=== PATIENT | male | born 1985 | race Caucasian/White ===

== ENCOUNTER 2017-01-15 20:28 | Emergency (ER) | payer BC ==
[~2017-01-15] VITALS: Ht 182.9 cm; Wt 83.9 kg
--- NOTE | 2017-01-15 20:55 | NUR ---
TO BED 1 AMBULATORY C/O L HAND SWELLING, REDNESS, DRAINAGE WITH NECROSIS NOTED S/P INJECTING HEROIN 3 DAYS AGO. PT AAOX4 NO ACUTE DISTRESS NOTED, RESP EVEN AND UNLABORED. PLACE PT ON CARDAIC MONITORING, CONTINUOUS POX. ER MD AT BEDSIDE TO EVAL PT WITH ORDERS RECEIVED. WILL CARRY OUT ORDERS.
--- NOTE | 2017-01-15 21:15 | NUR ---
CALLED DR SACHIN MEHTA FOR A CONSULT, TRANSFERRED CALL TO DR HU
--- NOTE | 2017-01-15 21:22 | NUR ---
PAGED DR LANDRUM, ARCHITECTURAL PRACTICE MANAGER FOR DR RICKS FOR A CONSULT
--- NOTE | 2017-01-15 21:29 | NUR ---
CALLED [facility] TO INITIATE HIGHER LEVEL OF CARE TRANSFER. INFORMED THERE ARE NO AVAILABLE BEDS.
[2017-01-15] MEDS ORDERED: VANCOMYCIN 1 GM in IV D5W 250 ML IV ONE (21:30)
[2017-01-15] MEDS ORDERED: METRONIDAZOLE 500MG/ NS 100ML 100 ML IV ONE ×2 (21:30→21:34)
[2017-01-15] MEDS ORDERED: PIPERACILLIN /TAZOBACTAM 3.375 G in IV D5W 50 ML IV ONE (21:30)
[2017-01-15] MEDS ORDERED: IV NS 0.9% 1,000 ML BAG IV ONE ×2 (21:30→22:00)
[2017-01-15] MEDS ORDERED: VANCOMYCIN 1 GM VIAL ONE (21:35)
[2017-01-15] MEDS ORDERED: PIPERACILLIN /TAZOBACTAM 3.375 G VIAL IV ONE (21:35)
[2017-01-15 21:37] LABS: BASOPHILS # (AUTO) 0.3 /CMM (0.0-0.2); BASOPHILS % (AUTO) 1.8 % (0.0-2.0); EOSINOPHILS % (AUTO) 0.1 % (0.0-6.0); HEMATOCRIT 45 % (39-51); HEMOGLOBIN 14.5 g/dL (13.5-17.5); LYMPHOCYTES # (AUTO) 2.1 /CMM (0.8-4.8); LYMPHOCYTES % (AUTO) 14.8 % (20.0-44.0); MEAN CORPUSCULAR HEMOGLOBIN 26 PG (26.0-33.0); MEAN CORPUSCULAR HGB CONC 32 g/dl (31.0-36.0); MEAN CORPUSCULAR VOLUME 82 fL (80-96); MONOCYTES # (AUTO) 0.6 /CMM (0.1-1.30); MONOCYTES % (AUTO) 4.2 % (2.0-12.0); NEUTROPHILS # (AUTO) 11.2 /CMM (1.8-8.9); NEUTROPHILS % (AUTO) 79.1 % (43.0-81.0); PLATELET COUNT (AUTO) 382 /CMM (150-450); RDW COEFFICIENT OF VARIATION 14.5 (11.5-15.0); RED BLOOD CELL COUNT(AUTO) 5.51 MIL/uL (4.5-6.0); WHITE BLOOD COUNT (AUTO) 14.2 K/uL (4.3-11.0)
--- NOTE | 2017-01-15 21:40 | NUR ---
CALLED [facility] TRANSFER LINE AND SPOKE TO PRISCA. EXPECTING CALL BACK.
--- NOTE | 2017-01-15 21:46 | NUR ---
CALLED [facility] TRANSFER LINE, SPOKE WITH MCKAY. WILL FAX FACESHEET TO [phone].
[2017-01-15 21:48] LABS: CALCIUM, SERUM 8.7 mg/dL (8.5-10.1); CARBON DIOXIDE 32 mmol/L (21-32); CHLORIDE 95 mmol/L (98-107); CREATININE 0.9 mg/dL (0.6-1.3); GLUCOSE 131 mg/dL (74-106); POTASSIUM 3.5 mmol/L (3.5-5.1); SODIUM SERUM 135 mmol/L (136-145); UREA NITROGEN, BLOOD 10 mg/dL (7-18)
[2017-01-15 21:52] LABS: INR 1.06 (0.87-1.13)
--- NOTE | 2017-01-15 21:53 | NUR ---
SPOKE WITH JAMES WITH [facility] TRANSFER LINE. WILL FAX FACE SHEET TO [phone]
--- NOTE | 2017-01-15 21:59 | NUR ---
SPOKE WITH JENNY NURSING LEGAL SERVICE SPECIALIST AT [facility]. THEY WILL NOT BE ABLE TO ACCOMODATE THIS PATIENT.
[2017-01-15] MEDS ORDERED: IV NS 0.9% 500 ML BAG IV ONE (22:00)
--- NOTE | 2017-01-15 22:02 | NUR ---
DR LANDRUM CALLED BACK, TRANSFERRED CALL TO DR HU
--- NOTE | 2017-01-15 22:06 | NUR ---
CALLED [facility] TRANSFER LINE, SPOKE WITH KYLAH. WILL FAX FACE SHEET TO [phone]. Addendum: 01/15/17 at 2208 by JEFF KYLAH FROM [facility] CALLED BACK. THEY WILL NOT HAVE A HAND SURGEON AVAILABLE FOR AN URGENT CONSULT.
--- NOTE | 2017-01-15 22:07 | NUR ---
[facility] CALLED FOR HIGHER LEVEL OF CARE. NO BEDS AVAILABLE.
--- NOTE | 2017-01-15 22:14 | NUR ---
CALLED [facility] FOR HLOC TRANSFER, SPOKE TO KEVIN NURSING TANNER ROTARY DRUM CONTINUOUS PROCESS, NO BEDS AVAILABLE AT THIS TIME.
--- NOTE | 2017-01-15 22:15 | NUR ---
CALLED CLAUDIA NURSING BB SHOT PACKER AT [facility]. SHE WILL CHECK FOR WITH PLASTICS AND WILL CALL US BACK.
[2017-01-15 22:18] LABS: C-REACTIVE PROTEIN 22.7 mg/dL (0.0-0.9)
--- NOTE | 2017-01-15 22:24 | NUR ---
PAGED DR AARON, PLASTICS AND HAND SURGEON
--- NOTE | 2017-01-15 22:26 | NUR ---
[facility] CALLED FOR HIGHER LEVEL OF CARE. SPOKE WITH PAT. GREEN FAXED.
--- NOTE | 2017-01-15 22:28 | NUR ---
DR AARON CALLED BACK, TRANSFERRED CALL TO DR MEADE
--- NOTE | 2017-01-15 22:40 | NUR ---
CALLED CARMENZA WITH BED CONTROL AT [facility]. THEY ARE UNABLE TO ACCOMODATE THE PATIENT.
--- NOTE | 2017-01-15 22:44 | NUR ---
[facility] CALLED BACK. THEY ARE UNABLE TO ACCEPT THE PATIENT
--- NOTE | 2017-01-15 22:46 | NUR ---
[facility] CALLED BACK AND THEIR PHYSICIAN IS UNWILLING TO ACCEPT THE PT PRIOR TO DISCUSSING IT WITH OUR PHYSICIAN BECAUSE HE DOES NOT BELIEVE THE PT IS STABLE FOR TRANSFER.
--- NOTE | 2017-01-15 22:51 | NUR ---
CALLED DHEERAJ WITH [facility] TRANSFER LINE. THEY ARE CURRENTLY AT CAPACITY WITH ADULT BEDS. CAN CALL BACK IN AN HOUR WHEN THEY REASSESS.
--- NOTE | 2017-01-15 23:00 | NUR ---
INITIATED CALL TO [facility] TRANSFER LINE FOR [facility]. TRANSFERRED CALL TO DR MEADE, WHO PRESENTED CASE. EXPECTING CALL BACK.
--- NOTE | 2017-01-15 23:12 | NUR ---
[facility] CALLED. STILL NO BED AVAILABLE.
--- NOTE | 2017-01-15 23:14 | NUR ---
PT APPEARS ASLEEP, NO ACUTE DISTRESS NOTED, RESP EVEN AND UNLABORED. CALL LIGHT WITHIN REACH. WILL CONTINUE TO MONITOR PT CLOSELY.
--- NOTE | 2017-01-15 23:22 | NUR ---
CALLED [facility] TRANSFER LINE AND SPOKE WITH MELINDA. WILL FAX FACE SHEET TO [phone].
--- NOTE | 2017-01-15 23:30 | NUR ---
DR SOUMYA ROWLAND, EMERGENCY MEDICINE PHYSICIAN PLASTIC SURGEON FOR [facility] CALLED TO SPEAK TO DR MEADE. HE IS ABLE TO TAKE THE PT BUT HE DOES NOT HAVE THE NECESSARY EQUIPMENT AT [facility]. HE SAID HE IS ALSO EMERGENCY MEDICINE PHYSICIAN AT [facility] AND WILL BE ABLE TO ACCEPT THE PT THERE.
--- NOTE | 2017-01-15 23:35 | NUR ---
CALLED [facility] [place] INFORMED [place] OF DR SOUMYA ROWLAND'S ACCEPTANCE. PER YING AT [facility] THEY HAVE NO AVAILABLE BEDS AT [facility].
--- NOTE | 2017-01-15 23:44 | NUR ---
PT IS ACCEPTED AT [facility] ED. NUMBER TO CALL REPORT IS [phone].
[2017-01-15 23:53] LABS: BILIRUBIN,DIRECT 0.1 mg/dL (0.0-0.2); BILIRUBIN,TOTAL 0.3 mg/dL (0.2-1.0)
--- NOTE | 2017-01-16 00:35 | NUR ---
Patient does not wish to proceed with medical care recommended by Dr. Gamble). Patient given information related to possible complications, up to and including , which could occur as a result of leaving the hospital at this time. Patient verbalizes understanding of risks involved due to leaving against medical advice. Patient has signed AMA form. pt aaox4 no acute distress noted, resp even and unlabored. pt verbalize understanding.
--- NOTE | 2017-01-16 00:35 | NUR ---
IV removed. Catheter intact and site benign. Pressure and 4x4 applied to site. No bleeding noted.
--- NOTE | 2017-01-16 00:35 | NUR ---
[facility] NOTIFIED THAT PT LEFT HOSPITAL AMA
[2017-01-16 00:36] VITALS: BP 140/82
== END 2017-01-16 00:37 | disposition left against medical advice (07) ==
LOC: ER 20:33
DX: L08.9 Local infection of the skin and subcutaneous tissue, unspecified (principal); L03.114 Cellulitis of left upper limb; R79.1 Abnormal coagulation profile
CPT/HCPCS: 36415; 73130; 80048; 82247; 82248; 83605 ×3; 85025; 85730; 86140; 87040 ×2; 87077; 93005; 96360; 96365; 96368; 99285; A4606; J2543 ×2; J3370 ×2; J3490; J7030 ×4; J7040 ×2; J7060 ×2; Z7610